=== PATIENT | female | born 1980 | race Caucasian/White ===

== ENCOUNTER → 2017-04-24 | Outpatient (CLI) | payer BC, OTHER ==
[~2017-04-24] MED LIST: ACHD5005 PO; BARIUM 700 MG (E-Z-DISK) TABLET PO ONE; BARIUM SUSPENSION 105% (LIQUID POLIBAR PLUS) 240 ML/DOSE PO ONE; BARIUM SUSPENSION 60% (LIQUID EZ PAQUE) 240 ML DOSE PO ONE; BIRTH CONTROL PO; CYCL10TA9 PO; HYDR-3454 PO; LEVO125T6 PO; LEVO200T6 PO; LVT.05T PO; METF-380 PO; NAPR-243 PO; PREN1TAB39 PO; SPIR25TA3 PO; SPIR50TA27 PO
--- NOTE | 2017-04-24 12:14 | Diagnostic Imaging Report ---
CLINICAL INDICATION: Patient with problems swallowing pill last couple of months. COMPARISONS: Thyroid ultrasound dated 08/20/2015. FINDINGS: THYROID NODULES: None. THYROID GLAND: There is similar appearance to the heterogeneous thyroid gland parenchyma with no definitive nodules seen. Thyroid gland has normal size, shape and echogenicity. The right lobe measures 4.3 cm x 2.0 cm x 1.6 cm and the left lobe measures 4.6 cm x 1.6 cm x 1.5 cm in their three dimensions. The right and left thyroid glands previously measured 5.6 cm x 2.3 cm x 2.4 cm and 5.9 cm x 2.6 cm x 2.5 cm. ISTHMUS: The isthmus is prominent and measures 10 mm in thickness. Isthmus previously measured 12 mm in thickness. IMPRESSION: There is interval decreased size in measurements of the thyroid gland, compared to the prior study, with persistent heterogeneity of the parenchyma seen. There is no measurable nodule noted. Dictated by: Dictated on workstation # [id number]
--- NOTE | 2017-04-24 15:02 | Diagnostic Imaging Report ---
INDICATION: Dysphagia. TECHNIQUE: The patient ingested effervescent crystals as well as thin and thick barium and imaging of the esophagus was performed. In addition, the patient was administered a barium pill. FINDINGS: The preliminary radiograph is unremarkable. The esophagus has a smooth contour. No mass or stricture is identified. No significant gastroesophageal reflux is demonstrated. There is a small hiatal hernia present. 2 minutes of fluoroscopy was utilized. IMPRESSION: Small hiatal hernia. No other significant abnormality is detected. Dictated by: Dictated on workstation # [id number]
== END ==
LOC: RAD 11:10
PROVIDERS: ATTEND Family Medicine
DX: K44.9 Diaphragmatic hernia without obstruction or gangrene (principal); R13.10 Dysphagia, unspecified; R94.6 Abnormal results of thyroid function studies
CPT/HCPCS: 74220; 76536

== ENCOUNTER 2017-04-28 07:43 | Outpatient (RCR) | payer BC ==
[~2017-04-28 07:43] MED LIST changes: -BARIUM 700 MG (E-Z-DISK) TABLET PO ONE; -BARIUM SUSPENSION 105% (LIQUID POLIBAR PLUS) 240 ML/DOSE PO ONE; -BARIUM SUSPENSION 60% (LIQUID EZ PAQUE) 240 ML DOSE PO ONE
== END 2017-07-27 | disposition home or self-care (01) ==
LOC: CARD 07:43
PROVIDERS: ATTEND Nurse Practitioner Family
DX: R00.0 Tachycardia, unspecified (principal)
CPT/HCPCS: 93225; 93226

== ENCOUNTER 2017-10-16 10:48 | Outpatient (RCR) | payer BC | END 2017-11-28 13:42 | disposition home or self-care (01) | PROVIDERS: ATTEND Nurse Practitioner Family | DX: I89.0 Lymphedema, not elsewhere classified (principal) ==

== ENCOUNTER 2017-12-31 17:26 | Emergency (ER) | payer OTHER, BC ==
[~2017-12-31] VITALS: Ht 170.2 cm; Wt 129.3 kg
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
[2017-12-31 20:04] VITALS: BP 157/111
== END 2017-12-31 20:12 | disposition home or self-care (01) ==
LOC: EDUNIT# 17:26 → ER 17:26
DX: S89.91XA Unspecified injury of right lower leg, initial encounter (principal); E03.9 Hypothyroidism, unspecified; R40.2142 Coma scale, eyes open, spontaneous, at arrival to emergency department; R40.2252 Coma scale, best verbal response, oriented, at arrival to emergency department; R40.2362 Coma scale, best motor response, obeys commands, at arrival to emergency department; Z79.84 Long term (current) use of oral hypoglycemic drugs; Z98.890 Other specified postprocedural states; Z90.89 Acquired absence of other organs; Z87.448 Personal history of other diseases of urinary system; Z90.49 Acquired absence of other specified parts of digestive tract; V49.50XA Passenger injured in collision with unspecified motor vehicles in traffic accident, initial encounter
CPT/HCPCS: 73590; 73610; 84703

== ENCOUNTER 2018-03-26 05:37 | Outpatient (CLI) | payer OTHER, BC ==
[~2018-03-26] VITALS: Ht 170.2 cm; Wt 129.3 kg
[2018-03-26] MEDS ORDERED: NORG1TAB14 PO (11:59)
[2018-03-26] MEDS ORDERED: SPIR50TA4 PO (11:59)
[2018-03-26] MEDS ORDERED: METF-399 PO (11:59)
[2018-03-26] MEDS ORDERED: LEVO175T5 PO (11:59)
[2018-03-26] MEDS ORDERED: PANT20TA3 PO (11:59)
[2018-03-26] MEDS ORDERED: METO-370 PO (11:59)
[2018-03-26] MEDS ORDERED: LISI10TA2 PO (11:59)
== END 2018-03-26 12:04 | disposition home or self-care (01) ==
LOC: PREOP 05:37
PROVIDERS: ATTEND Surgery
DX: Z01.818 Encounter for other preprocedural examination (principal)

== ENCOUNTER → 2018-06-11 | Outpatient (CLI) | payer BC ==
[~2018-06-11] MED LIST changes: +LEVO175T5 PO; +LISI10TA2 PO; +METF-399 PO; +METO-370 PO; +NORG1TAB14 PO; +PANT20TA3 PO; +SPIR50TA4 PO
--- NOTE | 2018-06-11 10:07 | Diagnostic Imaging Report ---
INDICATION: Routine screening. No prior mammograms are available for comparison. This is a baseline study. 2-D and 3-D bilateral screening mammography was performed with a Computer Aided Detection (CAD) system. FINDINGS: Scattered fibroglandular densities are identified bilaterally. No mass or malignant appearing microcalcifications are seen. The axillae are unremarkable. IMPRESSION: No mammographic features suspicious for malignancy are identified. ACR BI-RADS Category 1: Negative. Result letter will be mailed to the patient. Note: At least 10% of breast cancer is not imaged by mammography. Dictated by: Dictated on workstation # [id number]
== END ==
LOC: RAD 08:18
PROVIDERS: ATTEND Obstetrics & Gynecology
DX: Z12.31 Encounter for screening mammogram for malignant neoplasm of breast (principal)
CPT/HCPCS: 77067